=== PATIENT | male | born 1980 | race African-American/Black ===

== ENCOUNTER 2022-03-24 21:54 | Emergency (ER) | payer OTHER ==
[2022-03-24] MEDS ORDERED: Acetaminophen 500 MG TAB ONE (22:12)
[2022-03-24] MEDS ORDERED: methylPREDNISolone Sod Succ/PF 125 MG/2 ML VIAL ONE (22:12)
[2022-03-24] MEDS ORDERED: Metoclopramide HCl 10 MG/2 ML VIAL ONE (22:12)
== END 2022-03-25 00:20 | disposition home or self-care (01) ==
LOC: ERS 21:54
DX: R51.9 Headache, unspecified (principal); I10 Essential (primary) hypertension; F17.210 Nicotine dependence, cigarettes, uncomplicated
CPT/HCPCS: 70450; 93005; 94760; 96374; 96375; J2765; J2930

== ENCOUNTER 2022-03-29 14:49 | Emergency (ER) | payer OTHER ==
[2022-03-29] MEDS ORDERED: Aspirin Chewable 81 MG TAB ONE (15:15)
[2022-03-29 15:32] LABS: #Eosinphils 0.1 thou/uL (0.0-0.7); #Lymphocytes 1.9 thou/uL (1.20-3.40); #Monocytes 0.5 thou/uL (0.11-0.59); #Neutrophils 7.3 thou/uL (1.40-6.50); %Basophils 0.3 % (0.0-1.0); %Eosinophils 1.2 % (0.0-10.0); %Lymphocytes 19.4 % (21.0-51.0); %Monocytes 5.2 % (0.0-10.0); %Neutrophils 73.9 % (42.0-75.0); Hemoglobin 13.2 g/dL (14.0-18.0); Mean Corpuscular HGB CONC 34.1 g/dL (32.0-36.0); Mean Corpuscular Hemoglobin 33.7 pg (27.0-31.0); Mean Corpuscular Volume 98.9 fL (78.0-98.0); Mean Platelet Volume 6.8 fL (7.4-10.4); Platelet Count 392 thou/uL (130-400); RBC Distribution Width 13.1 % (11.5-14.5); Red Blood Cell (RBC) Count 3.92 mill/uL (4.70-6.10); White Blood Cell (WBC) Count 9.9 thou/uL (4.8-10.8)
[2022-03-29 15:53] LABS: ALT (SGPT) 17 U/L (8-55); AST (SGOT) 12 U/L (5-34); Alkaline Phosphatase 69 U/L (40-110); Anion Gap 15 mmol/L (10-20); BUN (Urea Nitrogen) 22 mg/dL (8.9-20.6); Bilirubin, Total 0.2 mg/dL (0.2-1.2); Calc. Creatinine Clearance 0 mL/min (70-130); Calcium 8.9 mg/dL (7.8-10.44); Carbon Dioxide 22 mmol/L (22-29); Chloride 106 mmol/L (98-107); Estimated GFR 114; Globulin 2.2 g/dL (2.4-3.5); Glucose 84 mg/dL (70-105); Potassium 4.7 mmol/L (3.5-5.1); Protein, Total 6.2 g/dL (6.0-8.3); Sodium 138 mmol/L (136-145)
== END 2022-03-29 16:00 | disposition left against medical advice (07) ==
LOC: ERS 14:49
DX: R07.2 Precordial pain (principal); I10 Essential (primary) hypertension; F17.210 Nicotine dependence, cigarettes, uncomplicated
CPT/HCPCS: 71045; 80053; 83880; 84484; 85025; 93005; 94760

== ENCOUNTER 2022-04-11 00:34 | Observation (INO) | payer OTHER ==
[2022-04-11 01:13] LABS: #Basophils 0.1 thou/uL (0.0-0.2); #Eosinphils 0.2 thou/uL (0.0-0.7); #Lymphocytes 1.8 thou/uL (1.20-3.40); #Monocytes 0.8 thou/uL (0.11-0.59); #Neutrophils 7.8 thou/uL (1.40-6.50); %Basophils 0.5 % (0.0-1.0); %Eosinophils 1.6 % (0.0-10.0); %Lymphocytes 16.8 % (21.0-51.0); %Monocytes 7.7 % (0.0-10.0); %Neutrophils 73.4 % (42.0-75.0); Hemoglobin 11.6 g/dL (14.0-18.0); Mean Corpuscular HGB CONC 33.4 g/dL (32.0-36.0); Mean Corpuscular Hemoglobin 33.5 pg (27.0-31.0); Mean Platelet Volume 7.3 fL (7.4-10.4); Platelet Count 316 thou/uL (130-400); RBC Distribution Width 12.9 % (11.5-14.5); Red Blood Cell (RBC) Count 3.46 mill/uL (4.70-6.10); White Blood Cell (WBC) Count 10.6 thou/uL (4.8-10.8)
[2022-04-11 01:35] LABS: ALT (SGPT) 16 U/L (8-55); AST (SGOT) 13 U/L (5-34); Albumin 3.4 g/dL (3.5-5.0); Alkaline Phosphatase 92 U/L (40-110); Anion Gap 11 mmol/L (10-20); BUN (Urea Nitrogen) 34 mg/dL (8.9-20.6); Bilirubin, Total Less than 0.2 mg/dL (0.2-1.2); CK (CPK) 54 U/L (30-200); Calc. Creatinine Clearance 0 mL/min (70-130); Calcium 8.5 mg/dL (7.8-10.44); Carbon Dioxide 30 mmol/L (22-29); Chloride 104 mmol/L (98-107); Estimated GFR 71; Globulin 2.1 g/dL (2.4-3.5); Glucose 91 mg/dL (70-105); Lipase 390 U/L (8-78); Potassium 3.5 mmol/L (3.5-5.1); Protein, Total 5.5 g/dL (6.0-8.3); Sodium 141 mmol/L (136-145)
[2022-04-11] MEDS ORDERED: Aspirin Chewable 81 MG TAB ONE (02:41)
[2022-04-11] MEDS ORDERED: Lidocaine Viscous Sol 2% 15 ml UD Cup ONE (02:41)
[2022-04-11] MEDS ORDERED: Nitroglycerin 2% Ointment 1 INCH/1 GM Packet ONE (02:41)
[2022-04-11] MEDS ORDERED: Mag-Al 1200 mg/1200 mg/30 ML UDCUP ONE (02:41)
[2022-04-11] MEDS ORDERED: Morphine 4 MG/ML VIAL ONE ×2 (03:02→04:32)
[2022-04-11] MEDS ORDERED: Promethazine HCl 25 MG/ML VIAL IM PRN (04:06)
[2022-04-11] MEDS ORDERED: Ondansetron ODT 4 MG TAB PO PRN (04:06)
[2022-04-11] MEDS ORDERED: Acetaminophen 650 MG Suppository PR PRN (04:06)
[2022-04-11] MEDS ORDERED: Ondansetron PF 4 MG/2 ML Vial IVP PRN (04:06)
[2022-04-11] MEDS ORDERED: Sodium Chloride 0.9% 1,000 ML IV SCH (04:15)
[2022-04-11 04:30] LABS: Acetaminophen Less than 10.0 mcg/mL (10.0-30.0); Alcohol Less than 10 mg/dL (Less than 10); Salicylate Less than 8.0 mg/dL (15.0-30.0)
[2022-04-11 05:03] LABS: SARS-CoV-2 NAA Rapid Test Not Detected (NotDetected)
[2022-04-11] MEDS: Morphine 4 MG/ML VIAL SLOW IVP PRN ×2 (05:41→10:32)
[2022-04-11] MEDS: Sodium Chloride 0.9% 1,000 ML IV SCH ×4 (06:11→21:15)
[2022-04-11] MEDS ORDERED: Labetalol HCl 100 MG/20 ML VIAL SLOW IVP PRN (06:26)
[2022-04-11] MEDS: Acetaminophen 325 MG TAB PO PRN ×2 (06:33→15:03)
[2022-04-11 06:40] LABS: Iron 87 ug/dL (65-175); Iron Binding Capacity, Total 246 mcg/dL (261-462)
[2022-04-11 07:05] LABS: Ferritin 57.17 ng/mL (22-322)
[2022-04-11] MEDS ORDERED: Enoxaparin Sodium 40 MG/0.4 ML SYRINGE SC SCH (09:00)
[2022-04-11] MEDS ORDERED: NIFEdipine XL 30 MG TAB PO SCH (09:00)
[2022-04-11] MEDS ORDERED: Pantoprazole 40 MG VIAL IVP SCH (09:00)
[2022-04-11] MEDS ORDERED: Iopamidol-370 76% 500 ML 1 ML ONE (10:35)
[2022-04-11 13:25] LABS: Amphetamine Detected (NotDetected); Barbiturates Screen Not Detected (NotDetected); Benzodiazepine Screen Not Detected (NotDetected); Cocaine Metabolite Screen Not Detected (NotDetected); Methadone Not Detected (NotDetected); Methamphetamine Detected (NotDetected); Opiate Screen Detected (NotDetected); Oxycodone Screen Not Detected (NotDetected); Phencyclidine (PCP) Not Detected (NotDetected); THC/Cannabinoid Screen Detected (NotDetected); Tricyclic Screen Not Detected (NotDetected)
[2022-04-11] MEDS: HYDROcodone/Acetaminophen 5/325 mg Tablet PO PRN ×2 (16:51→21:12)
[2022-04-11 21:02] VITALS: BP 159/98; TEMP 97.5
== END 2022-04-11 23:05 | disposition home or self-care (01) ==
LOC: ERS 00:34 → SURG A 03:53
PROVIDERS: ADMIT Internal Medicine; ATTEND Internal Medicine
DX: K85.90 Acute pancreatitis without necrosis or infection, unspecified (principal); R07.2 Precordial pain; I10 Essential (primary) hypertension; D53.9 Nutritional anemia, unspecified; N17.9 Acute kidney failure, unspecified; R51.9 Headache, unspecified; F17.210 Nicotine dependence, cigarettes, uncomplicated; K76.0 Fatty (change of) liver, not elsewhere classified; E86.0 Dehydration; Z88.8 Allergy status to other drugs, medicaments and biological substances; Z20.822 Contact with and (suspected) exposure to COVID-19
CPT/HCPCS: 36415; 70450; 71045; 74177; 76705; 80053; 80306; 80307; 82550; 82607; 82728; 83540; 83550; 83690; 84478; 84484; 85025; 93005; 96372; 96374; 96375; 96376; C9113; G0378; J1650; J2270; J2405; J2550; J7050; Q9967; U0002

== ENCOUNTER 2024-07-22 01:19 | Emergency (ER) | payer OTHER ==
[2024-07-22 01:53] LABS: #Basophils 0.04 10x3/uL (0.0-0.2); #Eosinophils Less than 0.03 10x3/uL (0.0-0.7); %Basophils 0.4 % (0.0-1.0); %Eosinophils 0.1 % (0.0-10.0); %Lymphocytes 12.5 % (21.0-51.0); %Monocytes 9.8 % (0.0-10.0); %Neutrophils 76.8 % (42.0-75.0); Hematocrit 50.8 % (42.0-52.0); Hemoglobin 17.6 g/dL (14.0-18.0); Mean Corpuscular HGB CONC 34.6 g/dL (32.0-36.0); Mean Corpuscular Hemoglobin 30.5 pg (27.0-31.0); Platelet Count 261 10x3/uL (130-400); RBC Distribution Width 13.3 % (11.5-14.5); Red Blood Cell (RBC) Count 5.77 mill/uL (4.70-6.10)
[2024-07-22 02:10] LABS: ALT (SGPT) 35 U/L (8-55); AST (SGOT) 26 U/L (5-34); Albumin 3.9 g/dL (3.5-5.0); Alkaline Phosphatase 122 U/L (40-110); Anion Gap 16 mmol/L (10-20); BUN (Urea Nitrogen) 23 mg/dL (8.9-20.6); Bilirubin, Total 0.2 mg/dL (0.2-1.2); Calc. Creatinine Clearance 0 mL/min (70-130); Calcium 9.1 mg/dL (7.8-10.44); Carbon Dioxide 19 mmol/L (22-29); Chloride 105 mmol/L (98-107); Estimated GFR 65; Globulin 3.6 g/dL (2.4-3.5); Glucose 104 mg/dL (70-105); Protein, Total 7.5 g/dL (6.0-8.3); Sodium 136 mmol/L (136-145)
[2024-07-22 02:13] LABS: Troponin I 0.018 ng/mL (< 0.028)
[2024-07-22] MEDS ORDERED: Losartan 25 MG TAB ONE (03:05)
[2024-07-22] MEDS ORDERED: hydrALAZINE 25 MG TAB ONE (03:05)
[2024-07-22] MEDS ORDERED: Acetaminophen 500 MG TAB ONE (03:05)
[2024-07-22] MEDS ORDERED: Ketorolac Tromethamine 30 MG (1 mL) VIAL ONE (03:05)
[2024-07-22] MEDS ORDERED: diphenhydrAMINE 50 MG/ML VIAL ONE ×2 (03:54→04:24)
[2024-07-22] MEDS ORDERED: Metoclopramide HCl 10 MG (2 mL) VIAL ONE ×2 (03:55→04:24)
[2024-07-22 04:32] LABS: Troponin I 0.028 ng/mL (< 0.028)
== END 2024-07-22 05:09 | disposition home or self-care (01) ==
LOC: ERS 01:19
DX: J10.1 Influenza due to other identified influenza virus with other respiratory manifestations (principal); I10 Essential (primary) hypertension
CPT/HCPCS: 36415; 71045; 80053; 83690; 83880; 84484; 85025; 85379; 87428; 93005; 96374; 96375; J1200; J1885; J2765